=== PATIENT | female | born 1975 | race Caucasian/White ===

== ENCOUNTER 2016-10-18 13:23 | Emergency (ER) ==
[2016-10-18 14:18] VITALS: BP 128/72
--- NOTE | 2016-10-18 14:36 | PROVIDER DOCUMENTATION ---
HPI-Rash/Wound/ReCheck - General Chief Complaint: Rash Stated Complaint: RASH Time Seen by Provider: 10/18/16 14:20 Source: patient Allergies/Adverse Reactions: Allergies Allergy/AdvReac Type Severity Reaction Status Date / Time No Known Allergies Allergy Verified 10/18/16 14:38 Home Medications: Home Medication List Medication Instructions Recorded Confirmed Last Taken Type Famotidine [Pepcid] 20 mg PO DAILY #20 tablet 10/18/16 Unknown Rx Hydrocortisone 1% Cream 1 applicatn TOP BID #1 tube 10/18/16 Unknown Rx Hydroxyzine [Atarax] 50 mg PO TID PRN #10 tablet 10/18/16 Unknown Rx - History of Present Illness-Dermatology Nature of Presenting Problem: This pt presents to the ED with c/o generalized rash that started 5 months ago. She reports that she spilled grease on her abdomen while at work 5 months ago and that's when the rash started. Denies using any new lotions, shampoos, cream , or body soaps. She was seen 3 months and given a prescription for triamcinolone cream but could not afford it so she never got it filled. Location: reports: generalized Quality: reports: itchy Severity: reports: moderate Onset/Duration: reports: other (see hpi) Timing: reports: still present Context/Associated Symptoms: reports: rash Similar Symptoms Previously?: Yes Recently seen or treated by another doctor?: Yes Review of Systems - Adult - REVIEW OF SYSTEMS - ADULT Constitutional: reports: no symptoms reported. denies: chills, fever Eyes: reports: no symptoms reported. denies: discharge, dry eyes Ears, Nose, Mouth & Throat: reports: no symptoms reported. denies: ear discharge, ear pain Cardiovascular: reports: no symptoms reported. denies: chest pain, edema Respiratory: reports: no symptoms reported. denies: chronic cough, cough Gastrointestinal: reports: no symptoms reported. denies: abdominal pain, hematemesis Genitourinary: reports: no symptoms reported. denies: dysuria, discharge Musculoskeletal: reports: no symptoms reported. denies: bone pain, back pain Integumentary: reports: itching, rash. denies: hives, hair loss Neurological: reports: no symptoms reported. denies: ataxia, dizziness/vertigo Psychiatric: reports: no symptoms reported. denies: anxiety, anti-depressant use Endocrine: reports: no symptoms reported Hematologic/Lymphatic: reports: no symptoms reported Allergic/Immunologic: reports: no symptoms reported All Other Systems: Reviewed and Negative Past History - Adult - PAST MEDICAL HISTORY-ADULT Review of Records: reports: Old Records Reviewed, Nursing Assessment Review, Medications Reviewed, Social history reviewed & non-contributory. Major Childhood Illnesses: reports: denies history Cardiovascular: reports: denies history Respiratory: reports: denies history Gastrointestinal: reports: GERD Obstetrical/Gynecological: reports: denies history Genitourinary: reports: denies history Musculoskeletal: reports: denies history Neurological: reports: denies history Psychiatric: reports: denies history Endocrine/Immune: reports: denies history Other Conditions: reports: denies history - PRIOR SURGERIES/PROCEDURES Surgical/Procedure History: reports: cholecystectomy - PRIOR HOSPITALIZATIONS Prior Hospitalizations: reports: for similar symptoms - IMMUNIZATION STATUS Childhood Immunizations: See Nurse Assessment Flu Vaccine: See Nurse Assessment - FAMILY HISTORY Family History: reviewed, not pertinent Physical Exam-General - PHYSICAL EXAM-ADULT Initial Vital Signs Reviewed: Yes - CONSTITUTIONAL General Appearance: appears well, alert, no apparent distress - EYES Eyes: PERRL/EOMI, pink conjunctivae - HEAD, EARS, NOSE, MOUTH & THROAT HENMT: normocephalic/atraumatic, moist mucous membranes, normal ENT inspection - NECK Neck: non-tender, full range of motion, supple - RESPIRATORY Respiratory: chest non-tender, lungs clear, normal breath sounds, no pleuratic chest pain, no respiratory distress, no accessory muscle use - CARDIOVASCULAR Cardiovascular: normal peripheral pulses, regular rate, rhythm, no edema, no gallop, no JVD, no murmur - GASTROINTESTINAL (ABDOMEN) Abdominal Exam: normal bowel sounds, non tender, soft - MUSCULOSKELETAL Back Exam: normal inspection, no CVA tenderness, no vertebral tenderness Extremity: normal range of motion, non-tender, normal gait, normal inspection - SKIN Integumentary: normal turgor, warm/dry, rash - NEUROLOGIC Neurologic: grossly normal, no motor/sensory deficits - PSYCHIATRIC Psych/Mental Status: normal mood/affect, normal thought content, normal thought process, oriented x 3 Progress - PLAN OF CARE/RESULTS Progress/Plan/Lab Results: Vital Signs Temp Pulse Resp BP Pulse Ox 10/18/16 14:17 98.4 F 88 18 128/72 100 No Known Allergies Allergy (Verified 10/18/16 14:38) No Home Medications 10/18/16 Will have pt f/u c dermatology. Departure - Departure Time of Disposition Order: 14:59 DIAGNOSIS: Rash and nonspecific skin eruption Disposition: HOME 01 Certified Medical Emergency: Urgent Condition: Good Additional Instructions: Take medications as prescribed. 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 ED Follow Up Instructions: You have been treated by a care provider in the Emergency Department. These instructions are being provided to you so you can have an understanding of how to care for yourself upon discharge. Upon discharge from the Emergency Department, you are responsible for making arrangements for follow-up care by a physician of your choice. Take all prescribed medications as directed. Return to the Emergency Department immediately for any new or worsening symptoms. You may call the Physician Referral phone number at [phone] to obtain a list of Physicians who are taking new patients. Prescriptions: Hydrocortisone 1% Cream 1 applicatn TOP BID #1 tube Hydroxyzine [Atarax] 50 mg PO TID PRN #10 tablet PRN Reason: Itching Famotidine [Pepcid] 20 mg PO DAILY #20 tablet Referrals: None,PCP [Primary Care Provider] - Vi Ramos MD [STAFF PHYSICIAN] - Attestation - Physician/ JM Attestation Patient care was provided by Advanced Practice Provider:: Yes Advanced Practice Provider:: Vicente Preston Advanced Practice Provider documentation review:: The Mid-level provider documentation, treatment plan and medical decision making was reviewed by the physician who agrees with all treatment and medical decision making by the MLP.
== END 2016-10-18 15:15 | disposition home or self-care (01) ==
LOC: ED 13:23
DX: R21 Rash and other nonspecific skin eruption (principal); L29.9 Pruritus, unspecified
CPT/HCPCS: 99281